=== PATIENT | male | born 1950 | race Caucasian/White ===

== ENCOUNTER 2017-08-03 12:25 | Outpatient (CLI) | payer MEDICARE, OTHER ==
[2015-06-05 19:30] VITALS: O2SAT 96
== END 2017-08-03 12:26 | disposition home or self-care (01) | DRG 556 ==
LOC: CONVCARE 12:25
PROVIDERS: ATTEND Orthopaedic Surgery
DX: M25.511 Pain in right shoulder (principal); R53.1 Weakness
CPT/HCPCS: 73030

== ENCOUNTER 2018-02-02 07:23 | Day surgery (SDC) | payer MEDICARE ==
[~2018-02-02 07:23] MED LIST: LIDOCAINE HCL 1% MPF SOL ONE; PROPOFOL 500 MG/50 ML EMU IV ONE
[2018-02-02 09:22] VITALS: TEMP 98
[2018-02-02 09:46] VITALS: BP 122/78; PULSE 78; RESP 18; O2SAT 95
== END 2018-02-02 10:32 | disposition home or self-care (01) | DRG 951 ==
LOC: SURG 07:23
PROVIDERS: ATTEND Internal Medicine Gastroenterology
DX: Z12.11 Encounter for screening for malignant neoplasm of colon (principal); K57.30 Diverticulosis of large intestine without perforation or abscess without bleeding; K64.8 Other hemorrhoids
CPT/HCPCS: G0121; J2001; J2704

== ENCOUNTER 2018-03-15 09:25 | Outpatient (CLI) | payer OTHER, MEDICARE ==
[2018-02-02 09:46] VITALS: O2SAT 95
== END 2018-03-15 09:26 | disposition home or self-care (01) | DRG 950 ==
LOC: CONVCARE 09:25
PROVIDERS: ATTEND Orthopaedic Surgery
DX: S46.011D Strain of muscle(s) and tendon(s) of the rotator cuff of right shoulder, subsequent encounter (principal); Z47.89 Encounter for other orthopedic aftercare
CPT/HCPCS: 73030